=== PATIENT | female | born 1945 | race Two or more races ===

== ENCOUNTER 2024-08-04 14:14 | Emergency (ER) | payer OTHER ==
[~2024-08-04] VITALS: Ht 167.6 cm; Wt 65.8 kg
[2024-08-04] MEDS ORDERED: CRESTOR40 MG PO (16:24)
[2024-08-04] MEDS ORDERED: HYDROCHLOROTHIA25 MG PO (16:26)
[2024-08-04] MEDS ORDERED: AVAPRO300 MG PO (16:26)
[2024-08-04] MEDS ORDERED: NORVASC5 MG PO (16:27)
[2024-08-04] MEDS ORDERED: AMLODIPINE-OLM1 EAC2 PO (16:27)
[2024-08-04] MEDS ORDERED: KETOROLAC TROMETHAMINE 15 MG VIAL IM STA (16:42)
[2024-08-04] MEDS ORDERED: TRAMADOL HCL 50 MG TABLET PO STA (17:55)
== END 2024-08-04 18:15 | disposition home or self-care (01) ==
LOC: ER 14:16
DX: S42.91XA Fracture of right shoulder girdle, part unspecified, initial encounter for closed fracture (principal); W19.XXXA Unspecified fall, initial encounter; Y93.89 Activity, other specified; Y92.89 Other specified places as the place of occurrence of the external cause; Y99.8 Other external cause status
CPT/HCPCS: 29105; 73000; 73030; 96372; 99283; J1885